=== PATIENT | female | born 1940 | race Hispanic/Latino ===

== ENCOUNTER 2019-06-05 14:29 | Emergency (ER) | payer MEDICARE ==
--- NOTE | 2019-06-05 15:41 | Event Note ---
ED Screening Note Date of service: 06/05/19 Time: 15:36 ED Screening Note: This is a 78 y.o. F. that presents to the ER with weakness and nausea. Patient states she went to PCP last and medication was changed. PMH of Hypothyroidism, HTN, and anxiety This initial assessment/diagnostic orders/clinical plan/treatment(s) is/are subject to change based on patients health status, clinical progression and re- assessment by fellow clinical providers in the ED. Further treatment and workup at subsequent clinical providers discretion. Patient/guardian urged not to elope from the ED as their condition may be serious if not clinically assessed and managed. Initial orders include: Labs
[2019-06-05 17:07] LABS: Basophils # (Auto) 0.1 K/mm3 (0.0-0.1); Basophils % (Auto) 0.9 % (0.0-1.8); Eosinophils # (Auto) 0.1 K/mm3 (0.0-0.4); Hemoglobin 14.5 gm/dl (10.1-14.3); Lymphocytes # (Auto) 1.4 K/mm3 (1.2-5.4); Lymphocytes % (Auto) 22.8 % (13.4-35.0); Mean Corpuscular HGB Conc 33 % (30-34); Mean Corpuscular Volume 90 fl (79-97); Monocytes # (Auto) 0.5 K/mm3 (0.0-0.8); Monocytes % (Auto) 7.6 % (0.0-7.3); Platelet Count 212 K/mm3 (140-440); Red Blood Count 4.91 M/mm3 (3.65-5.03)
[2019-06-05 17:49] LABS: Alanine Aminotransferase 15 units/L (7-56); Albumin 4.1 g/dL (3.9-5); BUN/Creatinine Ratio 22; Blood Urea Nitrogen 11 mg/dL (7-17); Calcium 9.3 mg/dL (8.4-10.2); Hemolysis Index 17
[2019-06-05] MEDS ORDERED: NORMODYNE PO ONE (23:53)
[2019-06-05] MEDS ORDERED: ZOFRAN IV ONE (23:53)
[2019-06-05] MEDS ORDERED: CATAPRES PO ONE (23:53)
--- NOTE | 2019-06-06 00:40 | Emergency Department Report ---
ED N/V/D HPI - General Chief complaint: Weakness Stated complaint: WEAKNESS/NAUSEA Time Seen by Provider: 06/05/19 15:36 Source: patient Mode of arrival: Wheelchair Limitations: No Limitations - History of Present Illness Initial comments: Chief complaint: "It's my blood pressure." Mrs. Chairez is an 78-year-old female with history of anxiety, hypothyroidism, hypertension who presents with nausea and generalized weakness. She is concerned her blood pressures been elevated over the last several weeks. She stated that she's been to [facility] since 11 times recently. 5 days ago she was evaluated by her PCP Dr. Gisselle Edwards. She denies any pain. She just doesn't feel well. She did tolerate chicken soup today. Medications include levothyroxine, labetalol, clonidine, fluoxetine, alprazolam, amlodipine. Reported atrial fibrillation rhythm noted per EMS. No history of atrial fibrillation. MD complaint: nausea -: Gradual, week(s) (2) Associated Abdominal Pain: No Severity: mild Quality: other (nausea) Consistency: constant Improves with: none Context: other (multiple recent ED visits) Associated Symptoms: other (nausea) - Related Data Previous Rx's Medication Instructions Recorded Last Taken Type Promethazine [Phenergan] 25 mg PO Q6HR PRN #10 tab 06/06/19 Unknown Rx Allergies Allergy/AdvReac Type Severity Reaction Status Date / Time No Known Allergies Allergy Unverified 06/05/19 15:04 ED Review of Systems ROS: Stated complaint: WEAKNESS/NAUSEA Other details as noted in HPI Comment: All other systems reviewed and negative Constitutional: malaise Respiratory: denies: shortness of breath Cardiovascular: denies: chest pain Gastrointestinal: nausea. denies: abdominal pain, vomiting, diarrhea, constipation Musculoskeletal: denies: back pain ED Past Medical Hx - Past Medical History Previous Medical History?: Yes Hx Hypertension: Yes Hx Psychiatric Treatment: Yes (ANXIETY) Additional medical history: hypothyroidism - Social History Smoking Status: Never Smoker Substance Use Type: None - Medications Home Medications: Home Medications Medication Instructions Recorded Confirmed Last Taken Type Promethazine [Phenergan] 25 mg PO Q6HR PRN #10 tab 06/06/19 Unknown Rx ED Physical Exam - General Limitations: No Limitations General appearance: alert, in no apparent distress - Head Head exam: Present: atraumatic, normocephalic - Eye Eye exam: Present: normal appearance - ENT ENT exam: Present: mucous membranes moist - Neck Neck exam: Present: normal inspection, full ROM - Respiratory Respiratory exam: Present: normal lung sounds bilaterally. Absent: respiratory distress, wheezes, rales, rhonchi - Cardiovascular Cardiovascular Exam: Present: regular rate, normal rhythm, normal heart sounds. Absent: systolic murmur, diastolic murmur, rubs, gallop - GI/Abdominal GI/Abdominal exam: Present: soft, normal bowel sounds. Absent: distended, tenderness, guarding, rebound - Extremities Exam Extremities exam: Present: normal inspection - Neurological Exam Neurological exam: Present: alert, oriented X3 - Psychiatric Psychiatric exam: Present: normal affect, normal mood - Skin Skin exam: Present: warm, dry, intact, normal color. Absent: rash ED Course Vital Signs 06/05/19 06/05/19 06/05/19 15:38 17:56 22:32 Temperature 98.4 F Pulse Rate 70 72 83 Respiratory 18 16 Rate Blood Pressure 220/87 227/90 Blood Pressure 207/84 [Right] O2 Sat by Pulse 98 97 99 Oximetry 06/06/19 06/06/19 06/06/19 00:00 00:12 00:13 Temperature 97.6 F Pulse Rate 78 78 78 Respiratory 12 Rate Blood Pressure 192/95 192/95 Blood Pressure 192/95 [Right] O2 Sat by Pulse 99 Oximetry 06/06/19 01:50 Temperature Pulse Rate 76 Respiratory 18 Rate Blood Pressure Blood Pressure 194/69 [Right] O2 Sat by Pulse 100 Oximetry ED Medical Decision Making - Lab Data Result diagrams: 06/05/19 16:51 06/05/19 16:51 - EKG Data 06/06/19 01:05 EKG obtained 004 Normal sinus rhythm rate 75 beats a minute normal axis and prolonged QT interval no ST elevation nonspecific T wave pattern - Medical Decision Making Mrs. Chairez presents with nausea and hypertension. Has tolerated PO in the ED. No indication of ACS, obstruction, or peritonitis. Repeat BP 150/72 with home mediications Clonidine and Labetalol. Instructed to f/u with Dr. Edwards this week. She understands to take amlodipine in the morning. She will take her remaining doses of clonidine labetalol and eating. She wouldn't resume her normal regimen. Prescribed promethazine for nausea. Nausea is likely adverse effect of medications. Critical care attestation.: If time is entered above; I have spent that time in minutes in the direct care of this critically ill patient, excluding procedure time. ED Disposition Clinical Impression: Hypertensive urgency, Nausea Disposition: DC-01 TO HOME OR SELFCARE Is pt being admited?: No Does the pt Need Aspirin: No Condition: Stable Instructions: Hypertension (ED) Additional Instructions: Please follow with Dr. Edwards this week. She needs to know that you were in the emergency department. Prescriptions: Promethazine [Phenergan] 25 mg PO Q6HR PRN #10 tab PRN Reason: Nausea Referrals: BRIGHT EDWARDS MD [Primary Care Provider] - HAYLEE
[2019-06-06 02:39] VITALS: BP 150/57
== END 2019-06-06 02:50 | disposition home or self-care (01) ==
LOC: ED 14:29
DX: I16.0 Hypertensive urgency (principal); F41.9 Anxiety disorder, unspecified; E03.9 Hypothyroidism, unspecified
CPT/HCPCS: 36415; 80053; 84443; 84484; 85025; 93005; 93010; 96374; 99284; J2405